=== PATIENT | female | born 1935 | race Hispanic/Latino ===

== ENCOUNTER 2024-10-22 19:59 | Emergency (ER) | payer OTHER, MEDICAID ==
[~2024-10-22] VITALS: Ht 152.4 cm; Wt 59.0 kg
[2024-10-22 20:45] LABS: IMMATURE GRANULOCYTE ABSOLUTE 0.02 K/uL (0-1); NUCLEATED RED BLOOD CELLS 0.0 % (0.0-0.19); PLATELET COUNT (AUTO) 271 K/uL (130-400); RED BLOOD CELL COUNT(AUTO) 3.26 MIL/uL (4.00-5.50); RED CELL DISTRIBUTION WIDTH 15.4 % (11.0-15.5); WHITE BLOOD COUNT (AUTO) 8.6 K/uL (4.8-10.8)
[2024-10-22 20:52] LABS: RAPID GROUP A STREP negative (NEGATIVE)
--- NOTE | 2024-10-22 20:54 | ERN ---
ED Note History of Present Illness Stated Complaint: BACK PAIN, LOTS OF MUCUS,COUGH Chief Complaint: Back Pain or Injury Time Seen by MD: 20:07 Time Seen by Midlevel: 20:07 Dictation: The patient is an 89-year-old female with a history of diabetes who presents to the emergency department with complaints of nasal congestion, productive cough onset Sunday. Patient reports occasional shortness of breath with the coughing but at rest she reports no shortness of breath. Denies any chest pain. Denies any fevers. Patient reports also that with all the coughing she starts having frequent urination. And reports that her whole back hurts when she coughs. Allergies: Coded Allergies: No Known Allergies (Unverified Allergy, Unknown, 10/22/24) Past Medical History Past Medical History: Arthritis, Asthma, Diabetes-Type II, High Cholesterol, Heart Disease, Hypertension Surgical History: None RN Note Reviewed/Agreed w/PFSH: Yes Review of System Dictation Constitutional: Negative for fever,chills, and weight loss Eyes: Negative for injury, pain,redness, and discharge ENT: Negative for injury,pain or swelling positive for nasal discharge Cardiovascular: Negative for chest pain, palpitations, and edema Respiratory: Negative for wheezing, positive for shortness of breath, cough Abdomen/GI: Negative for abdominal pain, nausea, vomiting, diarrhea, and constipation Back: Negative for injury and pain : Negative for injury, bleeding and discharge positive for frequent urination MS/Extremity: Negative for injury and deformity Skin: Negative for rash, and discoloration Neuro: Negative for headache, weakness, numbness, tingling, and seizure Psych: Negative for suicide ideation, homicidal ideation, and hallucinations Initial Vital Sign VS Vital Signs Date Time Temp Pulse Resp B/P (MAP) Pulse Ox O2 Delivery O2 Flow Rate FiO2 10/22/24 20:08 98.8 89 18 140/72 97 10/22/24 20:40 Room Air* 0 21 Physical Exam Dictation Vital Signs reviewed General Appearance: Alert, oriented x 3, no acute distress, well developed, nourished. Head and Face: non-traumatic. Eyes: PERRL, pink conjunctivas, eyelid no trauma, anterior chamber with arcus senilis. Ears: Pinnas intact and no signs of trauma or erythema ear canals clear and no discharge TM no erythema Nose: No discharge, no bleeding. Oropharynx: Mouth normal, tongue pink. pharynx clear,no erythema, tonsils no exudates, no abscesses noted, mucous membrane moist Neck: Supple, non-tender, no thyromegaly, no masses, no JVD, no bruits Breast:Deferred Chest:No tenderness, no crepitus, no paradoxical movement, no retractions Lungs:Clear, well-ventilated, symmetric, no rales, no wheezing, no rhonchi, no stridor, good breath sounds bilaterally Heart: Regular rate, regular rhythm, no murmur, no gallops Vascular: no peripheral edema, Abdomen: Soft, positive bowel sounds, nondistended, no guarding, nontender, no rebound, no masses no hepatomegaly, no splenomegaly, no Elias's sign, no hernias. Rectal: Deferred Genital: Deferred Neurological: Normal speech, motor function intact, sensory function intact Musculoskeletal: Neck nontender, full range of motion, back nontender, full range of motion, Extremities: nontender, full range of motion Skin: Color pink, dry, no turgor, no rash, no lacerations, no abrasions, no contusions. Lymphatic: Deferred Results (Laboratory/Radiology) Laboratory/Radiology Laboratory Tests Test 10/22/24 20:37 10/22/24 20:40 10/22/24 21:02 Influenza Type A Antigen Negative For Type A Influenza Type B Antigen Negative For Type B SARS-CoV-2 Antigen (Rapid) PRESUMPTIVE NEGATIVE Group A Streptococcus Rapid negative (NEGATIVE) White Blood Count 8.6 K/uL (4.8-10.8) Red Blood Count 3.26 MIL/uL (4.00-5.50) L Hemoglobin 8.9 g/dL (12.0-16.0) L Hematocrit 28.6 % (36-48) L Mean Corpuscular Volume 87.7 fL (79-99) Mean Corpuscular Hemoglobin 27.3 pg (27.0-33.0) Mean Corpuscular Hemoglobin Concent 31.1 g/dL (32.0-36.0) L Red Cell Distribution Width 15.4 % (11.0-15.5) Platelet Count 271 K/uL (130-400) Mean Platelet Volume 10.8 fL (7.5-10.5) H Immature Granulocyte % (Auto) 0.2 % (0-1) Neutrophils (%) (Auto) 50.5 % (40.0-77.0) Lymphocytes (%) (Auto) 32.4 % (21.0-51.0) Monocytes (%) (Auto) 9.5 % (3.0-13.0) Eosinophils (%) (Auto) 6.9 % (0.0-8.0) Basophils (%) (Auto) 0.5 % (0.0-5.0) Neutrophils # (Auto) 4.3 K/uL (1.8-7.7) Lymphocytes # (Auto) 2.8 K/uL (1.0-4.8) Monocytes # (Auto) 0.8 K/uL (0.1-1.0) Eosinophils # (Auto) 0.59 K/uL (0.00-0.70) Basophils # (Auto) 0.04 K/uL (0.00-0.20) Absolute Immature Granulocyte (auto 0.02 K/uL (0-1) Nucleated Red Blood Cells 0.0 % (0.0-0.19) Sodium Level 140 mmol/L (136-145) Potassium Level 4.2 mmol/L (3.5-5.1) Chloride Level 104 mmol/L (101-111) Carbon Dioxide Level 30 mmol/L (21-32) Blood Urea Nitrogen 25 mg/dL (7-18) H Creatinine 1.0 mg/dL (0.5-1.0) Glomerular Filtration Rate Calc 55 mL/min (>90) Random Glucose 142 mg/dL (70-105) H Total Calcium 9.4 mg/dL (8.5-10.1) Total Creatine Kinase 85 U/L (21-232) Troponin I High Sensitivity 7 ng/L (4-50) Urine Color LIGHT-YELLOW (YELLOW) Urine Appearance CLEAR (CLEAR) Urine pH 5.5 (5.0-8.0) Urine Specific [place] 1.031 (1.001-1.031) Urine Protein NEGATIVE mg/dL (NEGATIVE) Urine Glucose (UA) NEGATIVE mg/dL (NEGATIVE) Urine Ketones NEGATIVE mg/dL (NEGATIVE) Urine Occult Blood NEGATIVE (NEGATIVE) Urine Nitrate NEGATIVE (NEGATIVE) Urine Bilirubin NEGATIVE mg/dL (NEGATIVE) Urine Urobilinogen 2.0 mg/dL (0.2-1.0) H Urine Leukocyte Esterase NEGATIVE Erica/uL REASON: sob ORDERING PHYSICIAN: SHERITA CARDENAS PROCEDURE: CXR1VW - CHEST 1VW EXAM: CR Chest, 1 view CLINICAL HISTORY: Shortness of breath. COMPARISON: Chest radiograph dated 06/12/2013. FINDINGS: The lungs show no infiltrates or other acute findings. No pleural effusion or pneumothorax. The cardiomediastinal silhouette is within normal limits. Mild atherosclerotic aorta. No acute osseous abnormality. IMPRESSION: No acute cardiopulmonary process is evident. No interval changes. /[facility] Reviewed?: Yes EKG: (+) rhythm (Sinus rhythm) EKG Comment: Date:10/22/2024 Time:2024 Ventricular rate:91 NH interval:146 QRS duration:75 QT/QTc:318/391 EKG interpretation: Sinus rhythm Reviewed by ED Attending no STEMI ED Course ED Course Orders Procedure Category Date Status Time Cbc With Differential LAB 10/22/24 Complete 20:25 Chest 1vw RAD 10/22/24 Resulted 20:25 12 Lead Ekg Tracing- EKG 10/22/24 Complete Technical 20:25 Creatine Kinase, Total LAB 10/22/24 Complete 20:25 Troponin I High LAB 10/22/24 Complete Sensitivity 20:25 Basic Metabolic Panel LAB 10/22/24 Complete 20:25 Covid19 (Sars Antigen LAB 10/22/24 Complete Rapid) 20:25 Influenza Type A & B, LAB 10/22/24 Complete Rapid 20:25 Rapid (Group A Strep) LAB 10/22/24 Complete 20:25 Ipratropium/Albuterol PHA 10/22/24 Complete Neb (Duoneb) 20:30 Urinalysis Profile LAB 10/22/24 Complete 20:25 Azithromycin PHA 10/22/24 Complete (Zithromax) 22:00 Current Medications Medications (Trade) Dose Ordered Sig/Yasmani Route PRN Reason Start Time Stop Time Status Last Admin Dose Admin Albuterol (DUOneb) 1 UDVIAL ONCE ONCE IH 10/22/24 20:30 10/22/24 20:58 DC 10/22/24 21:36 Azithromycin (Zithromax) 500 mg ONCE ONCE PO 10/22/24 22:00 10/22/24 22:01 DC 10/22/24 21:58 Vital Signs Date Time Temp Pulse Resp B/P (MAP) Pulse Ox O2 Delivery O2 Flow Rate FiO2 10/22/24 21:37 97 19 10/22/24 20:40 98.1 90 18 165/58 99 Room Air* 0 21 10/22/24 20:08 98.8 89 18 140/72 97 Medical Decision Making MDM The patient is an 89-year-old female with a history of diabetes who presents to the emergency department with complaints of nasal congestion, productive cough onset Sunday. Patient reports occasional shortness of breath with the coughing but at rest she reports no shortness of breath. Denies any chest pain. Denies any fevers. Patient reports also that with all the coughing she starts having frequent urination. And reports that her whole back hurts when she coughs. CBC showed no leukocytosis, mild normocytic anemia, chemistry showed no e lectrolyte imbalance, GFR of 55, negative troponin, urinalysis unremarkable, serology negative. X-ray showed no consolidations prominent markings. On physical exam patient is in no acute distress, clear lung sounds bilaterally, nontender abdomen to palpation. Patient with stable vital signs, no fevers, tachycardia hypoxemia. Patient will be discharged to follow up with PCP. Differential diagnosis: Pneumonia, bronchitis, pneumothorax, ACS, upper respiratory infection Need for hospitalization: Patient does not meet criteria for hospitalization. There are no social concerns with this patient. DX & DISP Disposition: Discharge Departure Impression: Primary Impression: Pneumonitis Additional Impression: Cough Condition: Stable Scripts Azithromycin (Azithromycin) 500 Mg Tablet 1 TAB PO DAILY for 5 Days, #5 TAB 0 Refills Prov: SHERITA CARDENAS 10/22/24 Albuterol Sulfate (Ventolin Hfa/Proventil Hfa/Proair Hfa) 90 Mcg Puff 1 PUFF IH Q4H PRN for SHORTNESS OF BREATH for 5 Days, #1 INH 0 Refills PHARMACY TO DISPENSE 1 INHALER FOR USE Prov: SHERITA CARDENAS 10/22/24 Additional Instructions: Please take your medications as prescribed. Follow up with the primary doctor in 1-2 days. If you develop fevers, severe shortness of breath or anything changes please return to ER. FOLLOW-UP WITH PRIMARY CARE PROVIDER IN 1 TO 2 DAYS. TAKE MEDICATIONS DIRECTED HERE IN THE EMERGENCY ROOM. OKAY TO CONTINUE HOME MEDICATIONS UNLESS OTHERWISE DISCUSSED DURING YOUR VISIT IN THE EMERGENCY ROOM TODAY. RETURN TO YOUR NEAREST EMERGENCY ROOM IF SYMPTOMS WORSEN OR IF THERE IS NO IMPROVEMENT. CALL 911 IF YOU NEED IMMEDIATE ASSISTANCE. TAKE TYLENOL [id number] NEEDED AND IF NO CONTRAINDICATIONS ARE PRESENT. INCREASE ORAL HYDRATION. A WOUND CULTURE OR URINE CULTURE WAS ORDERED HERE IN THE EMERGENCY ROOM DEPARTMENT PLEASE FOLLOW-UP WITH PRIMARY CARE PROVIDER AND ADVISE THEM TO GET REPEAT PORTS FROM OUR FACILITY. IF YOU HAD ANY [place] WRAP/SPLINTS THAT WERE APPLIED HERE, PLEASE DO NOT REMOVE THEM UNTIL YOU SEE YOUR PRIMARY CARE OR SPECIALTY. Referrals: EDGARDO STANFORD MD (PCP) Time of Disposition: 22:04 I have reviewed the case, and I agree with, Diagnosis and Plan SHERITA CARDENAS [employer] Oct 22, 2024 20:53
[2024-10-22 20:55] LABS: CREATININE 1.0 mg/dL (0.5-1.0); GLOMERULAR FILTR. RATE CALC 55.0 mL/min (>90); GLUCOSE,RANDOM 142.0 mg/dL (70-105); SODIUM SERUM 140.0 mmol/L (136-145); UREA NITROGEN, BLOOD 25.0 mg/dL (7-18)
[2024-10-22 21:00] LABS: CREATINE KINASE, TOTAL 85.0 U/L (21-232)
[2024-10-22 21:03] LABS: COVID19 (SARS ANTIGEN RAPID) PRESUMPTIVE NEGATIVE (NEGATIVE); INFLUENZA TYPE A Negative For Type A (NEGATIVE); INFLUENZA TYPE B Negative For Type B (NEGATIVE)
[2024-10-22 21:18] LABS: APPEARANCE,URINE CLEAR (CLEAR); GLUCOSE, URINE (UA) NEGATIVE (NEGATIVE); LEUKOCYTE ESTERASE ,URINE NEGATIVE Leu/uL (NEGATIVE); NITRATE,URINE NEGATIVE (NEGATIVE); OCCULT BLOOD,URINE NEGATIVE (NEGATIVE)
[2024-10-22 21:20] LABS: ADD UA MICROSCOPIC NO
[2024-10-22 21:37] VITALS: PULSE 97; RESP 19
--- NOTE | 2024-10-22 21:48 | EKG ---
[facility] Test Date: 2024-10-22 Test Time: 20:37:54 Pat Name: SHARON FLANAGAN Department: ED Room: Gender: Female [employer]: [id number] Requested By: SHERITA CARDENAS Order Number: [id number] Reading MD: Measurements Intervals [place] Rate: 91 P: 47 ME: 146 QRS: 21 QRSD: 75 T: 1 QT: 318 QTc: 391 Interpretive Statements Sinus rhythm Low voltage, precordial leads Please click the below link to view image of tracing.
[2024-10-22] MEDS: AZITHROMYCIN 250 MG TABLET PO ONE (21:58)
--- NOTE | 2024-10-22 22:01 | HMCIMG ---
EXAM: CR Chest, 1 view CLINICAL HISTORY: Shortness of breath. COMPARISON: Chest radiograph dated 06/12/2013. FINDINGS: The lungs show no infiltrates or other acute findings. No pleural effusion or pneumothorax. The cardiomediastinal silhouette is within normal limits. Mild atherosclerotic aorta. No acute osseous abnormality. IMPRESSION: No acute cardiopulmonary process is evident. No interval changes. /[place]
[2024-10-22] MEDS ORDERED: ALBUHFA IH (22:05)
[2024-10-22] MEDS ORDERED: AZIT500T4 PO (22:05)
[2024-10-22 22:25] VITALS: BP 144/50; PULSE 88; RESP 19; TEMP 98.3; O2SAT 97
== END 2024-10-22 22:40 | disposition home or self-care (01) ==
LOC: EDH 19:59
DX: J18.9 Pneumonia, unspecified organism (principal); R05.9 Cough, unspecified; E11.9 Type 2 diabetes mellitus without complications; E78.00 Pure hypercholesterolemia, unspecified; I10 Essential (primary) hypertension; J45.909 Unspecified asthma, uncomplicated; M19.90 Unspecified osteoarthritis, unspecified site; Z20.822 Contact with and (suspected) exposure to COVID-19
CPT/HCPCS: 36415; 71045; 80048; 81003; 82550; 84484; 85025; 87426; 87804; 87880; 93005; 94640; 99285